=== PATIENT | male | born 1945 | race Caucasian/White ===

== ENCOUNTER 2016-07-29 11:41 | Emergency (ER) | payer MEDICARE, BC ==
[2016-07-29] MEDS ORDERED: NS 0.9% 1000 ML* 1,000 ML IV ONE (14:47)
[2016-07-29 15:03] LABS: Hematocrit 44 % (42-52); Hemoglobin 14.5 g/dl (14.0-18.0); Mean Corpuscular HGB Conc 33 g/dl (31-36); Mean Corpuscular Hemoglobin 29 pg (27-31); Mean Corpuscular Volume 88 fL (80-94); Mean Platelet Volume 10 um3 (7.4-10.4); Red Blood Count 4.94 10^6/ul (4.0-5.4); Red Cell Distribution Width 13 % (10.5-15); White Blood Count 6.4 10^3/ul (3.5-10.8)
[2016-07-29 15:14] LABS: Albumin 3.9 g/dL (3.2-5.2); BUN/Creatinine Ratio 15.2 (8-20); Calcium 9.3 mg/dL (8.6-10.3); EGFR African American 103.7 (>60); EGFR Non-African American 80.6 (>60); Globulin 3.4 g/dL (2-4); Potassium 3.9 mmol/L (3.5-5.0); Total Bilirubin 0.7 mg/dL (0.2-1.0); Total Protein 7.3 g/dL (6.4-8.9)
[2016-07-29 15:25] LABS: TSH (Thyroid Stimulating Horm) 1.2 mcIU/mL (0.34-5.60)
[2016-07-29 15:46] LABS: Urine Bacteria Absent (Absent); Urine Bilirubin Negative (Negative); Urine Glucose Negative (Negative); Urine Nitrite Negative (Negative)
--- NOTE | 2016-07-29 16:39 | RAD ---
HISTORY: Left leg edema in a patient with a reported history of bilateral DVTs. (No prior imaging currently available for direct comparison) TECHNIQUE: Multiple transverse and longitudinal ultrasound images were obtained of the veins of the bilateral lower extremities using grayscale, color Doppler, and spectral Doppler imaging with and without compression and with augmentation. FINDINGS: VEINS: The common femoral vein, deep femoral vein, femoral vein and popliteal vein exhibits adequate flow on color Doppler imaging and normal response to augmentation on spectral Doppler imaging. Bilaterally from the proximal femoral vein to the popliteal vein there is only partial compressibility. SOFT TISSUES: Grossly normal. No large popliteal fossa cyst was identified. IMPRESSION: Evidence of partial occlusion involving the bilateral femoral and popliteal veins. Loss of full compressibility of the bilateral femoral and popliteal veins is consistent with chronic thrombus formation (i.e. "scar"). The chronicity is indeterminate as there are no prior DVT examinations available for comparison.
[2016-07-29 18:14] VITALS: BP 123/100
--- NOTE | 2016-07-29 18:57 | ED ---
Josep Mcclure Erika, scribed for Wilder Harley MD on 07/29/16 at 1718 . Lower Extremity - HPI Summary HPI Summary: Patient is a 71-year-old male presenting to the ED with a CC of LLE swelling. He denies trauma. 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 He wears compression socks for this, and sleeps with his legs elevated. Pt notes that usually, his feet are slightly swollen by the end of the day, but are not swollen anymore by the time he wakes up. He states that last night, the LLE was much more swollen than usual, and it was still slightly swollen this morning, which is unusual. He denies pain in the leg , and denies skin being erythematous or hot to the touch. He also became lightheaded this morning around 11:00. He denies associated spinning sensation, balance problems, nausea, tinnitus, and hearing loss. Patient does report a recent cold and still states some nasal discharge. Pt denies abdominal pain. Pt' s PCP is in [facility]. He takes warfarin and thyroid medication. Patient does not smoke, and rarely drinks. - History of Current Complaint Chief Complaint: EDDizziness Stated Complaint: LT LEG SWELLING Hx Obtained From: Patient Onset/Duration: Hours Severity Initially: Moderate Severity Currently: Mild Pain Intensity: 0 Pain Scale Used: 0-10 Numeric Timing: Constant Location: Is Discrete @ - LLE Associated Signs And Symptoms: Positive: Swelling - LLE. Negative: Redness Alleviating Factor(s): Elevation Able to Bear Weight: Yes - Allergies/Home Medications Allergies/Adverse Reactions: Allergies Allergy/AdvReac Type Severity Reaction Status Date / Time No Known Allergies Allergy Verified 07/29/16 11:43 PMH/Surg Hx/FS Hx/Imm Hx Cardiovascular History: Reports: Hx Deep Vein Thrombosis - bilaterally and chronically Respiratory History: Reports: Hx Asthma Infectious Disease History: No Infectious Disease History: Denies: Traveled Outside the [place] in Last 30 Days - Family History Known Family History: Positive: Diabetes - brother - Social History Alcohol Use: Rare Substance Use Type: Reports: None Hx Tobacco Use: Yes Smoking Status (MU): Former Smoker Review of Systems Positive: Nasal Discharge Positive: Edema - bilateral, worse LLE Negative: Rash Neurological: Other - lightheadedness All Other Systems Reviewed And Are Negative: Yes Physical Exam - Summary Physical Exam Summary: The patient is well-nourished in no acute distress and in no acute pain. The skin is warm and dry and skin color reflects adequate perfusion. HEENT: The head is normocephalic and atraumatic. The pupils are equal and reactive. The conjunctivae are clear and without drainage. Nares are patent and without drainage. Mouth reveals moist mucous membranes and the throat is without erythema and exudate. The external ears are intact. The ear canals are patent and without drainage. The tympanic membranes are intact. No effusions in the TMs. Neck is supple with full range of motion and non-tender. There are no carotid bruits. There is no neck vein distension. Respiratory: Chest is non-tender. Lungs are clear to auscultation and breath sounds are symmetrical and equal. Cardiovascular: Hear is regular rate and rhythm. There is no murmur or rub auscultated. Pulses are symmetrical and equal. Abdomen: The abdomen is soft and non-tender. There are normal bowel sounds heard in all four quadrants and there is no organomegaly palpated. Musculoskeletal: There is no back pain noted. Extremities are non-tender with full range of motion. There is good capillary refill. There is bilateral pedal edema, worse on the left. There is no calf tenderness. Neurological: Patient is alert and oriented to person, place and time. The patient has symmetrical motor strength in all four extremities. Cranial nerves are grossly intact. Deep tendon reflexes are symmetrical and equal in all four extremities. No nystagmus. Psychiatric: The patient has an appropriate affect and does not exhibit any anxiety or depression. Triage Information Reviewed: Yes Vital Signs On Initial Exam: Initial Vitals Temp Pulse Resp BP Pulse Ox 98.8 F 86 18 148/70 100 07/29/16 11:43 07/29/16 11:43 07/29/16 11:43 07/29/16 11:43 07/29/16 11:43 Vital Signs Reviewed: Yes Diagnostics - Vital Signs Vital Signs Temp Pulse Resp BP Pulse Ox 07/29/16 13:30 66 18 114/53 96 07/29/16 13:00 64 12 120/51 96 07/29/16 12:30 64 14 121/55 97 07/29/16 12:20 67 14 114/60 97 07/29/16 11:43 98.8 F 86 18 148/70 100 - Laboratory Lab Results: Lab Results 07/29/16 07/29/16 07/29/16 Range/Units 12:14 12:14 12:14 WBC 6.4 (3.5-10.8) 10^3/ul RBC 4.94 (4.0-5.4) 10^6/ul Hgb 14.5 (14.0-18.0) g/dl Hct 44 (42-52) % MCV 88 (80-94) fL MCH 29 (27-31) pg MCHC 33 (31-36) g/dl RDW 13 (10.5-15) % Plt Count 137 L (150-450) 10^3/ul MPV 10 (7.4-10.4) um3 Neut % (Auto) 68.4 (38-83) % Lymph % (Auto) 19.3 L (25-47) % Traill % (Auto) 7.6 (1-9) % Eos % (Auto) 3.1 (0-6) % Baso % (Auto) 1.6 (0-2) % Absolute Neuts (auto) 4.4 (1.5-7.7) 10^3/ul Absolute Lymphs (auto) 1.2 (1.0-4.8) 10^3/ul Absolute Monos (auto) 0.5 (0-0.8) 10^3/ul Absolute Eos (auto) 0.2 (0-0.6) 10^3/ul Absolute Basos (auto) 0.1 (0-0.2) 10^3/ul Absolute Nucleated RBC 0 10^3/ul Nucleated RBC % 0.1 INR (Anticoag Therapy) 3.29 H (0.89-1.11) APTT 46.7 H (26.0-36.3) seconds Sodium 137 (133-145) mmol/L Potassium 3.9 (3.5-5.0) mmol/L Chloride 105 (101-111) mmol/L Carbon Dioxide 26 (22-32) mmol/L Anion Gap 6 (2-11) mmol/L BUN 14 (6-24) mg/dL Creatinine 0.92 (0.67-1.17) mg/dL Est GFR ( Amer) 103.7 (>60) Est GFR (Non-Af Amer) 80.6 (>60) BUN/Creatinine Ratio 15.2 (8-20) Glucose 112 H (70-100) mg/dL Calcium 9.3 (8.6-10.3) mg/dL Magnesium 2.0 (1.9-2.7) mg/dL Total Bilirubin 0.70 (0.2-1.0) mg/dL AST 26 (13-39) U/L ALT 21 (7-52) U/L Alkaline Phosphatase 58 (34-104) U/L Total Protein 7.3 (6.4-8.9) g/dL Albumin 3.9 (3.2-5.2) g/dL Globulin 3.4 (2-4) g/dL Albumin/Globulin Ratio 1.1 (1-3) TSH 1.20 (0.34-5.60) mcIU/mL Urine Color Urine Appearance Urine pH (5-9) Ur Specific [place] (1.010-1.030) Urine Protein (Negative) Urine Ketones (Negative) Urine Blood (Negative) Urine Nitrate (Negative) Urine Bilirubin (Negative) Urine Urobilinogen (Negative) Ur Leukocyte Esterase (Negative) Urine WBC (Auto) (Absent) Urine RBC (Auto) (Absent) Urine Bacteria (Absent) Urine Glucose (Negative) 07/29/16 Range/Units 15:30 WBC (3.5-10.8) 10^3/ul RBC (4.0-5.4) 10^6/ul Hgb (14.0-18.0) g/dl Hct (42-52) % MCV (80-94) fL MCH (27-31) pg MCHC (31-36) g/dl RDW (10.5-15) % Plt Count (150-450) 10^3/ul MPV (7.4-10.4) um3 Neut % (Auto) (38-83) % Lymph % (Auto) (25-47) % Traill % (Auto) (1-9) % Eos % (Auto) (0-6) % Baso % (Auto) (0-2) % Absolute Neuts (auto) (1.5-7.7) 10^3/ul Absolute Lymphs (auto) (1.0-4.8) 10^3/ul Absolute Monos (auto) (0-0.8) 10^3/ul Absolute Eos (auto) (0-0.6) 10^3/ul Absolute Basos (auto) (0-0.2) 10^3/ul Absolute Nucleated RBC 10^3/ul Nucleated RBC % INR (Anticoag Therapy) (0.89-1.11) APTT (26.0-36.3) seconds Sodium (133-145) mmol/L Potassium (3.5-5.0) mmol/L Chloride (101-111) mmol/L Carbon Dioxide (22-32) mmol/L Anion Gap (2-11) mmol/L BUN (6-24) mg/dL Creatinine (0.67-1.17) mg/dL Est GFR ( Amer) (>60) Est GFR (Non-Af Amer) (>60) BUN/Creatinine Ratio (8-20) Glucose (70-100) mg/dL Calcium (8.6-10.3) mg/dL Magnesium (1.9-2.7) mg/dL Total Bilirubin (0.2-1.0) mg/dL AST (13-39) U/L ALT (7-52) U/L Alkaline Phosphatase (34-104) U/L Total Protein (6.4-8.9) g/dL Albumin (3.2-5.2) g/dL Globulin (2-4) g/dL Albumin/Globulin Ratio (1-3) TSH (0.34-5.60) mcIU/mL Urine Color Yellow Urine Appearance Clear Urine pH 6.0 (5-9) Ur Specific [place] 1.008 L (1.010-1.030) Urine Protein Negative (Negative) Urine Ketones Negative (Negative) Urine Blood Negative (Negative) Urine Nitrate Negative (Negative) Urine Bilirubin Negative (Negative) Urine Urobilinogen Negative (Negative) Ur Leukocyte Esterase 1+ H (Negative) Urine WBC (Auto) 1+(6-10/hpf) H (Absent) Urine RBC (Auto) Trace(0-2/hpf) (Absent) Urine Bacteria Absent (Absent) Urine Glucose Negative (Negative) Result Diagrams: 07/29/16 12:14 07/29/16 12:14 Lab Statement: Any lab studies that have been ordered have been reviewed, and results considered in the medical decision making process. - Ultrasound No standard instances Ultrasound Interpretation Completed By: Radiologist - Bilateral Lower Extremity Venous Doppler - IMPRESSION: Evidence of partial occlusion involving the bilateral femoral and popliteal veins. Loss of full compressibility of the bilateral femoral and popliteal veins is consistent with chronic thrombus formation (i.e. "scar"). The chronicity is indeterminate as there are no prior DVT examinations available for comparison. - EKG 11:48 Cardiac Rate: NL - at 72 bpm EKG Rhythm: Sinus Rhythm EKG Interpretation: Poor R wave progression. LAD. Possible old anterior wall PR Re-Evaluation - Re-Evaluation First Eval Re-Evaluation Time: 18:19 Comment: Discussed ultrasound results with patient. recommended follow up with PCP Lower Extremity Course/Dx - Course Assessment/Plan: Pt is a 71 y/o M with chronic bilateral DVTs presenting to the ED with a CC of increased LLE swelling and lightheadedness. In the ED course, pt was given IV fluids. US bilateral LE shows "evidence of partial occlusion involving the bilateral femoral and popliteal veins. Loss of full compressibility of the bilateral femoral and popliteal veins is consistent with chronic thrombus formation (i.e. "scar"). The chronicity is indeterminate as there are no prior DVT examinations available for comparison." Patient will be discharged with follow up from his PCP, and will continue to take his warfarin. - Diagnoses Differential Diagnosis/HQI/PQRI: Positive: DVT, Other - vertigo, anemia, chronic anticoagulation therapy Provider Diagnoses: Dizziness, Chronic deep vein thrombosis (DVT) Discharge - Discharge Plan Condition: Stable Disposition: HOME Patient Education Materials: Dizziness (ED), Leg Edema (ED) Referrals: [facility] [place] [facility] [Outside] Additional Instructions: Please follow up with your PCP. The documentation as recorded by the Josep betts Erika accurately reflects the service I personally performed and the decisions made by , Wilder Harley MD.
== END 2016-07-29 18:59 | disposition home or self-care (01) ==
LOC: ED 11:41
DX: I82.513 Chronic embolism and thrombosis of femoral vein, bilateral (principal); R60.9 Edema, unspecified; R42 Dizziness and giddiness; Z87.891 Personal history of nicotine dependence
CPT/HCPCS: 36415; 80053; 81003; 81015; 83735; 84443; 85025; 85610; 85730; 87086; 93005; 93970; 99283

== ENCOUNTER 2018-09-26 23:05 | Emergency (ER) | payer MEDICARE, BC ==
--- NOTE | 2018-09-27 02:01 | ED ---
Lower Extremity - HPI Summary HPI Summary: Patient complains of dropping weight on left foot yesterday morning. Patient has been ambulatory since, denies pain, but does have swelling and purple discoloration to toes of left foot. Denies any other symptoms pain or injury. Positive anti-coag. - History of Current Complaint Chief Complaint: EDExtremityLower Stated Complaint: DROPPED A WEIGHT ON A COUPLE OF MY TOES PER PT Time Seen by Provider: 09/27/18 00:19 Hx Obtained From: Patient Mechanism Of Injury: Blunt Trauma Onset/Duration: Hours Severity Currently: None Pain Intensity: 0 Pain Scale Used: 0-10 Numeric Associated Signs And Symptoms: Positive: Swelling, Redness, Bruising Aggravating Factor(s): Nothing Able to Bear Weight: Yes - Allergies/Home Medications Allergies/Adverse Reactions: Allergies Allergy/AdvReac Type Severity Reaction Status Date / Time No Known Allergies Allergy Verified 07/29/16 11:43 PMH/Surg Hx/FS Hx/Imm Hx Endocrine/Hematology History: Reports: Hx Anticoagulant Therapy Cardiovascular History: Reports: Hx Deep Vein Thrombosis - bilaterally and chronically Respiratory History: Reports: Hx Asthma Sensory History: Denies: Hx Legally Blind Opthamlomology History: Denies: Hx Eye Prosthesis EENT History: Denies: Hx Deafness Neurological History: Denies: Hx Dementia Psychiatric History: Denies: Hx Autism - Immunization History Immunizations Up to Date: Yes Infectious Disease History: No Infectious Disease History: Denies: Traveled Outside the [place] in Last 30 Days - Family History Known Family History: Positive: Diabetes - brother - Social History Alcohol Use: Occasionally Substance Use Type: Reports: None Hx Tobacco Use: Yes Smoking Status (MU): Former Smoker Review of Systems Constitutional: Negative Eyes: Negative ENT: Negative Cardiovascular: Negative Respiratory: Negative Gastrointestinal: Negative Genitourinary: Negative Musculoskeletal: Other Skin: Other Neurological: Negative Psychological: Normal All Other Systems Reviewed And Are Negative: Yes Physical Exam - Summary Physical Exam Summary: Swelling and erythema to second digit of left foot. Exam of left foot otherwise unremarkable. Calf soft nontender. PMS intact. Triage Information Reviewed: Yes Vital Signs On Initial Exam: Initial Vitals Temp Pulse Resp BP Pulse Ox 98.7 F 77 16 162/75 97 09/26/18 23:07 09/26/18 23:07 09/26/18 23:07 09/26/18 23:07 09/26/18 23:07 Vital Signs Reviewed: Yes Appearance: Positive: Well-Appearing Skin: Positive: Warm Head/Face: Positive: Normal Head/Face Inspection Eyes: Positive: Normal Neck: Positive: Supple Respiratory/Lung Sounds: Positive: Clear to Auscultation Cardiovascular: Positive: Normal Abdomen Description: Positive: Nontender Musculoskeletal: Positive: Normal Neurological: Positive: Normal Psychiatric: Positive: Normal AVPU Assessment: Alert - [place] Coma Scale Best Eye Response: 4 - Spontaneous Best Motor Response: 6 - Obeys Commands Best Verbal Response: 5 - Oriented Coma Scale Total: 15 Diagnostics - Vital Signs Vital Signs Temp Pulse Resp BP Pulse Ox 09/26/18 23:07 98.7 F 77 16 162/75 97 - Laboratory Lab Statement: Any lab studies that have been ordered have been reviewed, and results considered in the medical decision making process. Lower Extremity Course/Dx - Course Course Of Treatment: Patient complains of dropping weight on left foot yesterday morning. Patient has been ambulatory since, denies pain, but does have swelling and purple discoloration to toes of left foot. Denies any other symptoms pain or injury. Positive anti-coag. Physical exam:Swelling and erythema to second digit of left foot. Exam of left foot otherwise unremarkable. Calf soft nontender. PMS intact. Vital signs within normal limits. X-ray positive for potential fracture of second digit of left foot. Patient placed in boot. Follow-up with orthopedics. Patient understands and approves of plan. - Diagnoses Provider Diagnoses: Toe fracture, left Discharge - Sign-Out/Discharge Documenting (check all that apply): Patient Departure Patient Received Moderate/Deep Sedation with Procedure: No - Discharge Plan Condition: Stable Disposition: HOME Patient Education Materials: Toe Fracture (ED) Referrals: Miller Hernandez MD [Primary Care Provider] - Rahul Quinteros MD [Medical Doctor] - Additional Instructions: Continue to wear boot to protect possible toe fracture. Follow-up with orthopedics Dr. Mccloud for further evaluation. Return to the ED for any new or worsening symptoms. - Billing Disposition and Condition Condition: STABLE Disposition: Home
[2018-09-27 02:12] VITALS: BP 159/86
== END 2018-09-27 02:11 | disposition home or self-care (01) ==
LOC: ED 23:05
DX: S92.502A Displaced unspecified fracture of left lesser toe(s), initial encounter for closed fracture (principal); W22.8XXA Striking against or struck by other objects, initial encounter; Y93.B3 Activity, free weights; Y92.9 Unspecified place or not applicable; Y99.8 Other external cause status; Z87.891 Personal history of nicotine dependence
CPT/HCPCS: 99282